=== PATIENT | male | born 1970 | race American Indian/Alaskan Native ===

== ENCOUNTER 2023-02-01 11:04 | Day surgery (SDC) | payer OTHER ==
[~2023-02-01] VITALS: Ht 175.3 cm; Wt 73.9 kg
[2023-02-01] VITALS (16 sets, daily range): BP systolic 135–191; BP diastolic 72–102
[~2023-02-01 11:04] MED LIST: ASCO500 PO; Aspir 8181 MG PO; CLOP75 PO; CYCL10 PO; FAMO20 PO; GABA100; Hair, Skin & N1 EACH PO; Norco 5-325 Ta1 EACH PO; PROP10 PO; SILD25T PO; TRAM50 PO; TRIPHROCAPS SOFT1 MG PO; VITAMIN B COMP1 EAC1 PO; VITAMIN D310 MC4 PO; ZINC15 PO
--- NOTE | 2023-02-01 20:45 | NUR ---
DISCHARGE PT A&Ox4, CALLS AND COMMUNICATES NEEDS APPROPRIATELY. BP STABLE, HR 80-100, DENIES CP/PRESSURE. SpO2> 92% RA, DENIES SOB. L FEMORAL ACCESS SITE WNL, DRESSING C/D/I. NO BRUISING, BLEEDING, SWELLING, OR HEMATOMA PRESENT. PT DENIES N/T, PAIN, OR TENDERNESS. AT BEDSIDE WHILE THIS RN REVIEWED DISCHARGE INSTRUCTIONS. AT APPROXIMATELY 2040 PT TAKEN OUT VIA WHEELCHAIR, HAS ALL PT BELONGINGS.
== END 2023-02-01 20:40 | disposition home or self-care (01) ==
LOC: MHTC 11:04 → PCU 16:21 → MHTC 20:40
DX: E11.51 Type 2 diabetes mellitus with diabetic peripheral angiopathy without gangrene (principal); I70.221 Atherosclerosis of native arteries of extremities with rest pain, right leg; N52.9 Male erectile dysfunction, unspecified; I70.211 Atherosclerosis of native arteries of extremities with intermittent claudication, right leg; Z72.0 Tobacco use; E11.22 Type 2 diabetes mellitus with diabetic chronic kidney disease; N18.9 Chronic kidney disease, unspecified
CPT/HCPCS: 76937; 85347; 99152; 99153; C1714; C1760; C1769; C1884; C1887; C1894; C2623; J1644; J2250; J3010; J7030; J7050; Q9967